=== PATIENT | female | born 1940 | race African-American/Black ===

== ENCOUNTER 2018-11-24 17:37 | Emergency (ER) | payer OTHER, MEDICARE ==
[2018-11-24 17:47] VITALS: BP 142/84; PULSE 82; TEMP 97.8; BMI 26.1
--- NOTE | 2018-11-24 18:47 | PDOC ---
History of Present Illness - General Chief Complaint: Headache Stated Complaint: HEAD ACH 4 DAYS NOW Time Seen by Provider: 11/24/18 18:42 History Source: Patient Exam Limitations: No Limitations - History of Present Illness Initial Comments: 11/24/18 19:02 78 yo F with a hx of glaucoma presents to the emergency department with right side frontal and maxillary pain that has been ongoing for 4 days. Per the patient, she had a hx of migraines, but this is a different quality to her usual migraines that terminate with excedrin use. Excedrin did not terminate this headache. Onset of pain began 2-3 hours after hitting her head against a cabinet while rising from a sitting position. Denies anti-coagulation use and LOC at the time. The pain is described as throbbing, non radiating, with concurrent nausea but no vomiting. Denies the following: FND, visual deficits, ears/nose/throat pain, fever, chills, ataxia, dizziness, lightheadedness, neck stiffness. Denies the following: chest pain, SOB, abdominal pain, dysuria, hematuria, diarrhea, hematochezia, and leg pain/swelling. Pmhx: glaucoma Meds: None Allergies: PCN, erythromycin Social: Denies tobacco, alcohol, and substance abuse. Past History - Past Medical History Allergies/Adverse Reactions: Allergies Allergy/AdvReac Type Severity Reaction Status Date / Time erythromycin base Allergy Verified 11/24/18 17:47 Penicillins Allergy Verified 11/24/18 17:47 Home Medications: Ambulatory Orders Unobtainable 06/07/15 COPD: No - Surgical History Cardiac Surgery: Yes (cardiac cath) - Suicide/Smoking/Psychosocial Hx Smoking History: Never smoked Hx Alcohol Use: No Drug/Substance Use Hx: No Substance Use Type: None Review of Systems - Review of Systems Able to Perform ROS?: Yes Is the patient limited Romansh proficient: No Constitutional: No: Chills, Diaphoresis, Fever, Weakness HEENTM: No: Eye Pain, Recent change in vision, Ear Pain, Nose Pain, Nose Congestion, Tinnitus, Throat Pain, Mouth Pain Respiratory: No: Cough, Shortness of Breath, SOB with Exertion, Hemoptysis Cardiac (ROS): No: Chest Pain, Lightheadedness, Palpitations, Syncope, Chest Tightness ABD/GI: Yes: Nausea. No: Constipated, Diarrhea, Poor Appetite, Poor Fluid Intake, Rectal Bleeding, Vomiting, Tarry Stools : No: Burning, Dysuria, Hematuria, Urgency Musculoskeletal: No: Back Pain, Joint Pain, Neck Pain Integumentary: No: Bruising, Erythema, Flushing, Lesions, Pruritus, Rash Neurological: Yes: Headache. No: Numbness, Tingling, Tremors, Ataxia, Dizziness Psychiatric: No: Change in Appetite Endocrine: No: Unexplained Weight Gain Hematologic/Lymphatic: Yes: Anemia (hx of anemia). No: Blood Clots *Physical Exam - Vital Signs Last Vital Signs Temp Pulse Resp BP Pulse Ox 97.8 F 82 18 142/84 99 11/24/18 17:45 11/24/18 17:45 11/24/18 17:45 11/24/18 17:45 11/24/18 17:45 - Physical Exam General Appearance: Yes: Nourished, Appropriately Dressed. No: Apparent Distress, Intoxicated HEENT: positive: EOMI, EUSEBIO, Normal ENT Inspection, Normal Voice, Symmetrical, TMs Normal, Pharynx Normal, Hearing Grossly Normal, Other (no rocha seen on skin. no bruises. slight tenderness to palpation in the right maxillary area. ) . negative: Pale Conjunctivae, Scleral Icterus (R), Scleral Icterus (L), Muffled/Hoarse voice, Pharyngeal Erythema, Tonsillar Exudate, Tonsillar Erythema , Nasal Congestion, Rhinorrhea, Sinus Tenderness, Hearing Decreased, TM Bulging , TM Dull, TM Erythema, Lesions, Excessive drooling, Thrush Neck: positive: Trachea midline. negative: Tender, Lymphadenopathy (R), Lymphadenopathy (L), Tender lateral, Tender midline Respiratory/Chest: positive: Lungs Clear, Normal Breath Sounds. negative: Chest Tender, Respiratory Distress, Accessory Muscle Use, Paradoxal Breathing, Crackles, Rales, Rhonchi, Stridor, Wheezing, Hyperresonant Cardiovascular: positive: Regular Rhythm, Regular Rate, S1, S2. negative: Systolic Murmur Gastrointestinal/Abdominal: positive: Normal Bowel Sounds, Flat, Soft. negative : Tender, Distended, Guarding, Rebound, Tenderness, Hernia Lymphatic: negative: Adenopathy Musculoskeletal: positive: Normal Inspection. negative: CVA Tenderness, CVA Tenderness (R), CVA Tenderness (L), Vertebral Tenderness Extremity: positive: Normal Capillary Refill, Normal Inspection, Normal Range of Motion. negative: Tender, Swelling, Calf Tenderness Integumentary: positive: Normal Color, Dry, Warm. 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 negative: EOM Palsy, Facial Droop, Sensory Deficit Moderate Sedation - Procedure Monitoring Vital Signs: Procedure Monitoring Vital Signs Temperature 97.8 F 11/24/18 17:45 Pulse Rate 82 11/24/18 17:45 Respiratory Rate 18 11/24/18 17:45 Blood Pressure 142/84 11/24/18 17:45 O2 Sat by Pulse Oximetry (%) 99 11/24/18 17:45 Heart Score/ECG Review - ECG Intrepretation Comment:: ventricular rate is 68 bpm, AR is 136 ms, QTc is 393 ms, QRS is [address] elevations or depression noted. grossly unchanged from previous EKG. ED Treatment Course - LABORATORY CBC & Chemistry Diagram: 11/24/18 20:08 11/24/18 20:08 Medical Decision Making - Medical Decision Making 78 yo F with a hx of glaucoma presents to the emergency department with right side frontal and maxillary pain that has been ongoing for 4 days. Initial vitals Initial Vital Signs Temp Pulse Resp BP Pulse Ox 97.8 F 82 18 142/84 99 11/24/18 17:45 11/24/18 17:45 11/24/18 17:45 11/24/18 17:45 11/24/18 17:45 Work up ddx: headache (migraine vs tension vs cluster vs intracranial mass) vs sinusitis vs URI Laboratory Tests 11/24/18 11/24/18 11/24/18 20:08 20:08 20:08 WBC 6.7 RBC 4.20 Hgb 14.5 Hct 42.2 MCV 100.5 H MCH 34.6 H MCHC 34.4 RDW 13.7 Plt Count 266 D MPV 7.2 L Absolute Neuts (auto) 5.0 Neutrophils % 74.9 D Lymphocytes % 14.4 D Monocytes % 8.6 Eosinophils % 1.3 Basophils % 0.8 Nucleated RBC % 0 Sodium 142 Potassium 3.9 Chloride 107 Carbon Dioxide 26 Anion Gap 9 BUN 15 Creatinine 0.9 Creat Clearance w eGFR > 60 Random Glucose 78 Calcium 9.4 Total Bilirubin 0.3 AST 20 ALT 17 Alkaline Phosphatase 96 Creatine Kinase 70 Troponin I < 0.02 Total Protein 7.8 Albumin 3.2 L Blood Type A POSITIVE Antibody Screen Negative 11/24/18 20:08 WBC RBC Hgb Hct MCV MCH MCHC RDW Plt Count MPV Absolute Neuts (auto) Neutrophils % Lymphocytes % Monocytes % Eosinophils % Basophils % Nucleated RBC % Sodium Potassium Chloride Carbon Dioxide Anion Gap BUN Creatinine Creat Clearance w eGFR Random Glucose Calcium Total Bilirubin AST ALT Alkaline Phosphatase Creatine Kinase Troponin I Total Protein Albumin Blood Type A POSITIVE Antibody Screen labs within normal limits. patient presents with headache likely migraine. head CT was negative. denies worst headache of her life. vitals signs within normal limits. given 1 gram of tylenol, 10 mg of reglan, 25 mg of benadryl, and 1 L of NS. patient had complete resolution of symptoms. given referral to neurologist as the patient never had previous neurology follow up for her migraines in the past. given return precautions. patient was able to ambulate out of the department on her own volition. Dispo: Discharge *DC/Admit/Observation/Transfer Diagnosis at time of Disposition: Headache Qualifiers: Headache type: unspecified Headache chronicity pattern: unspecified pattern Intractability: not intractable Qualified Code(s): R51 - Headache - Discharge Dispostion Disposition: HOME Condition at time of disposition: Improved Decision to Admit order: No - Referrals Referrals: Chelsea Dunne MD [Primary Care Provider] - Shashi Mckay MD [Staff Physician] - - Patient Instructions Printed Discharge Instructions: DI for Migraine Additional Instructions: you were seen for your headache today. labs and CT were within normal limits. please follow up with Dr. Mckay within 1 week for follow up care and management. please see your primary medical doctor within 1 week for follow up care and management. please return to the emergency department if you have worsening or new symptoms such as fever with headache, chest pain, nausea and vomiting that is uncontrolled, and focal neurological deficits. thank you. - Post Discharge Activity
[2018-11-24] MEDS ORDERED: ACETAMINOPHEN 1000 MG/100 ML VIAL (NON FORMULARY) IVPB ONE (19:31)
[2018-11-24] MEDS ORDERED: ACETAMINOPHEN INJECTION 100 ML IVPB ONE (19:50)
[2018-11-24 20:31] LABS: BASO % 0.8 % (0-2.0); EOS % 1.3 % (0-4.5); HEMATOCRIT 42.2 % (32.4-45.2); HEMOGLOBIN 14.5 GM/dL (10.7-15.3); LYMPH % 14.4 % (8-40); MCH 34.6 pg (25.7-33.7); MCHC 34.4 g/dl (32.0-36.0); MEAN CELL VOLUME 100.5 fl (80-96); MEAN PLT VOLUME 7.2 fl (7.5-11.1); MONO % 8.6 % (3.8-10.2); NEUT % 74.9 % (42.8-82.8); PLATELET COUNT 266 K/MM3 (134-434); RDW 13.7 % (11.6-15.6); WHITE BLOOD COUNT 6.7 K/mm3 (4.0-10.0)
[2018-11-24 20:43] LABS: ALBUMIN 3.2 g/dl (3.4-5.0); ALK PHOS 96 U/L (45-117); ANION GAP 9 MMOL/L (8-16); BILIRUBIN,TOTAL 0.3 mg/dL (0.2-1); BLOOD UREA NITROGEN 15 mg/dL (7-18); CALCIUM 9.4 mg/dL (8.5-10.1); CHLORIDE 107 mmol/L (98-107); CO2 26 mmol/L (21-32); CREATININE 0.9 mg/dL (0.55-1.3); GLUCOSE,RANDOM 78 mg/dL (74-106); POTASSIUM 3.9 mmol/L (3.5-5.1); SGOT/AST 20 U/L (15-37); SGPT/ALT 17 U/L (13-61); SODIUM 142 mmol/L (136-145); TOT PROT 7.8 g/dl (6.4-8.2)
[2018-11-24] MEDS ORDERED: SODIUM CHLORIDE 1,000 ML IV STA (21:10)
[2018-11-24] MEDS ORDERED: KETOROLAC TROMETHAMINE 30 MG/1 ML VIAL IVPUSH ONE (21:10)
[2018-11-24] MEDS ORDERED: METOCLOPRAMIDE HCL INJECTION 10 MG/2 ML VIAL IVPUSH ONE (21:10)
--- NOTE | 2018-11-24 21:31 | PDOC ---
Attending Attestation - HPI HPI: 11/24/18 21:49 The patient is a 78 year old female with a history of glaucoma who presents to the ED today complaining of frontal and maxillary pain. Patient reports 5/10 right side frontal and maxillary pain after getting hit in the head with a cabinet 4 days ago. Patient also reports a throbbing like headache and nausea associated with present symptoms. Patient took excedrin with no relief of present symptoms. Denies fevers or chills. Denies vomiting. Denies any other symptoms. <Delbert Ivey - Last Filed: 11/24/18 21:49> - Resident Resident Name: Fidencio Garcia - ED Attending Attestation I have performed the following: I have examined & evaluated the patient, The case was reviewed & discussed with the resident, I agree w/resident's findings & plan, Exceptions are as noted - HPI HPI: 11/24/18 21:30 78 yo female p/w persistent 4 day headache. She did fall 4 days ago. - Physicial Exam PE: 11/24/18 22:39 alert and conversant 78 yo female eyes marco antonio eomi neck supple,no bruits no midline cervical vertebral tenderness lungs cta b/l cvs [id number] abd nontender ext no edema no lumbar vertebral tenderness skin warm and dry neuro axox3,motor strength 5/5, ambulatory , no facial droop, no speech difficulties - Medical Decision Making 11/24/18 22:42 stable VS labs reviewed ekg no evidence of ischemia ct scan head no acute intracranial pathology, atrophy pt has no focal neuro deficits, her headache resolved <Edita Armstrong - Last Filed: 11/24/18 22:45> Attestations - Attestations 11/24/18 21:49 Documentation prepared by Delbert Ivey, acting as senior medical billing specialist for Edita Armstrong MD <Delbert Ivey - Last Filed: 11/24/18 21:49>
[2018-11-24] MEDS ORDERED: METOCLOPRAMIDE HCL INJECTION 10 MG/2 ML VIAL ONE (21:42)
[2018-11-24] MEDS ORDERED: KETOROLAC TROMETHAMINE 30 MG/1 ML VIAL ONE (21:42)
--- NOTE | 2018-11-25 12:08 | EKG ---
Test Reason : Blood Pressure : / mmHG Vent. Rate : 068 BPM Atrial Rate : 068 BPM P-R Int : 136 ms QRS Dur : 080 ms QT Int : 370 ms P-R-T Axes : 041 038 033 degrees QTc Int : 393 ms NORMAL SINUS RHYTHM NONSPECIFIC T WAVE ABNORMALITY ABNORMAL ECG WHEN COMPARED WITH ECG OF 07-JUN-2015 03:06, NO SIGNIFICANT CHANGE WAS FOUND Confirmed by DASHAWN CRUZ MD ([id number]) on 11/25/2018 12:08:18 PM Referred By: Confirmed By:DASHAWN CRUZ MD
== END 2018-11-24 23:09 | disposition home or self-care (01) ==
LOC: JER 17:37
DX: R51 Headache (principal); W22.8XXA Striking against or struck by other objects, initial encounter; Y93.89 Activity, other specified; Y92.89 Other specified places as the place of occurrence of the external cause; Y99.8 Other external cause status; Z98.61 Coronary angioplasty status; Z86.69 Personal history of other diseases of the nervous system and sense organs
CPT/HCPCS: 36415; 70450-TC; 80053; 82550; 84484; 85025; 86850; 86900; 86901; 93005; 93010; 99282-25; J0131; J7030

== ENCOUNTER 2019-03-02 02:57 | Emergency (ER) | payer OTHER, MEDICARE ==
--- NOTE | 2019-03-02 03:28 | PDOC ---
History of Present Illness - General Chief Complaint: Shortness of Breath Stated Complaint: SOB Time Seen by Provider: 03/02/19 03:07 History Source: Patient Exam Limitations: No Limitations Past History - Past Medical History Allergies/Adverse Reactions: Allergies Allergy/AdvReac Type Severity Reaction Status Date / Time erythromycin base Allergy Verified 03/02/19 03:23 Penicillins Allergy Verified 03/02/19 03:23 Home Medications: Ambulatory Orders Unobtainable 06/07/15 COPD: No - Surgical History Cardiac Surgery: Yes (cardiac cath) - Suicide/Smoking/Psychosocial Hx Smoking History: Never smoked Have you smoked in the past 12 months: No Information on smoking cessation initiated: No Hx Alcohol Use: No Drug/Substance Use Hx: No Substance Use Type: None *Physical Exam - Vital Signs Last Vital Signs Temp Pulse Resp BP Pulse Ox 97.6 F 66 18 131/77 98 03/02/19 02:57 03/02/19 02:57 03/02/19 02:57 03/02/19 02:57 03/02/19 02:57 *DC/Admit/Observation/Transfer Diagnosis at time of Disposition: Arm pain Qualifiers: Laterality: bilateral Qualified Code(s): M79.601 - Pain in right arm; M79.602 - Pain in left arm - Discharge Dispostion Disposition: HOME Condition at time of disposition: Fair Decision to Admit order: No - Referrals Referrals: Chelsea Dunne MD [Primary Care Provider] - Hu Regalado DO [Staff Physician] - - Patient Instructions Printed Discharge Instructions: DI for Arm Pain Additional Instructions: you were evaluated for your arm tingling sensation. your ct was negative for acute process but shows degenerative change. please follow up with the neurologist within 1 week after discharge for follow up care and management. please return to the emergency department if you have worsening pain or new concerning symptoms such as focal weakness, loss of balance, and inability to use your arms. thank you. - Post Discharge Activity
[2019-03-02 03:31] VITALS: BP 131/77; PULSE 66; TEMP 97.6; BMI 26.1
[2019-03-02] MEDS ORDERED: METHOCARBAMOL 500 MG TABLET PO ONE (05:20)
[2019-03-02] MEDS ORDERED: METHOCARBAMOL 500 MG TABLET ONE (05:51)
--- NOTE | 2019-03-02 06:57 | PDOC ---
Attending Attestation - Resident Resident Name: Fidencio Garcia - ED Attending Attestation I have performed the following: I have examined & evaluated the patient, The case was reviewed & discussed with the resident, I agree w/resident's findings & plan - HPI HPI: 03/03/19 00:24 Pt comes with bilateral arm pains. - Physicial Exam PE: 03/03/19 00:25 No CP. Heart and lungs clear. Pt has no abd pain. 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 03/03/19 00:25 Agree with resident exam - Medical Decision Making 03/02/19 06:56 Patient Name: TAY HATHAWAY THIS IS A PRELIMINARY REPORT FROM [facility] DATE OF SERVICE: 2019-03-02 05:57:30 IMAGES: 238 EXAM: CT CERVICAL SPINE CT W/O CONTR HISTORY: Concern for nerve impingement COMPARISON: None. FINDINGS: Vertebral bodies appear normal with no fracture Vertebral bodies are normally aligned there are degenerative changes with intervertebral disc space narrowing at the level of C3-C4, C4-C5 and C5-C6. There are posterior osteophytes most prominently at C4-C5 but without central spinal canal stenosis. There is some narrowing of the right neural foramen at this level Airway is intact Soft Tissues are normal Pulmonary apices are normal IMPRESSION: Degenerative changes without cervical spine fracture 03/03/19 00:26 Pt will follow outpatient with neurology for analgesics and further eval
--- NOTE | 2019-03-02 15:24 | EKG ---
Test Reason : Blood Pressure : / mmHG Vent. Rate : 066 BPM Atrial Rate : 066 BPM P-R Int : 144 ms QRS Dur : 086 ms QT Int : 436 ms P-R-T Axes : 044 054 040 degrees QTc Int : 457 ms SINUS RHYTHM WITH PREMATURE ATRIAL COMPLEXES NONSPECIFIC T WAVE ABNORMALITY ABNORMAL ECG WHEN COMPARED WITH ECG OF 24-NOV-2018 19:53, PREMATURE ATRIAL COMPLEXES ARE NOW PRESENT QT HAS LENGTHENED Confirmed by NILSON PATTON, PADMINI ([id number]) on 03/02/2019 3:23:36 PM Referred By: Confirmed By:PADMINI DEVINE MD
== END 2019-03-02 07:07 | disposition home or self-care (01) ==
LOC: JER 02:57
DX: M50.31 Other cervical disc degeneration, high cervical region (principal); M50.323 Other cervical disc degeneration at C6-C7 level
CPT/HCPCS: 72125-TC; 93005; 93010; 99282-25

== ENCOUNTER 2019-11-20 14:35 | Inpatient (IN) | payer OTHER, MEDICARE ==
--- NOTE | 2019-11-20 16:04 | PDOC ---
History of Present Illness - General Chief Complaint: Pain, Acute Stated Complaint: SENT BY PCP/RT LEG PAIN Time Seen by Provider: 11/20/19 15:13 - History of Present Illness Initial Comments: 11/20/19 16:08 Pt is a 79y/o female with glaucoma and right knee OA who presents with gradual onset right lower extremity weakness x2 weeks. In the last 2 days, it has gotten significantly worse to the point she is having to drag her foot at times in order to walk. She also was having difficulty using the pedal while driving and is having intermittent numbness and tingling of toes. Dr. Hsu suggested pt come to ED for evaluation. She reports posterior thigh "electric sensations" that is worse with sitting and standing from toilet. She denies headache, dizziness, weakness of other extremities, bowel or bladder incontinence. No recent illnesses. Timing/Duration: reports: 24 hours Past History - Past Medical History Allergies/Adverse Reactions: Allergies Allergy/AdvReac Type Severity Reaction Status Date / Time erythromycin base Allergy Verified 03/02/19 03:23 Penicillins Allergy Verified 03/02/19 03:23 Home Medications: Ambulatory Orders Naproxen Sodium [Aleve] 220 mg PO BID 11/20/19 Netarsudil Mesylate [Rhopressa] 1 drop OU HS 11/20/19 COPD: No Hx Glaucoma: Yes - Surgical History Cardiac Surgery: Yes (cardiac cath) - Immunization History Immunization Up to Date: No - Psycho Social/Smoking Cessation Hx Smoking History: Never smoked Have you smoked in the past 12 months: No Information on smoking cessation initiated: No Hx Alcohol Use: No Drug/Substance Use Hx: No Substance Use Type: None Review of Systems - Review of Systems Constitutional: No: Chills, Fever Respiratory: No: Shortness of Breath Cardiac (ROS): No: Chest Pain ABD/GI: No: Nausea, Vomiting : No: Dysuria Musculoskeletal: Yes: Joint Pain. No: Back Pain Integumentary: No: Bruising Neurological: Yes: Numbness, Paresthesia. No: Headache *Physical Exam - Vital Signs Last Vital Signs Temp Pulse Resp BP Pulse Ox 97.6 F 69 16 122/77 99 11/20/19 14:44 11/20/19 14:44 11/20/19 14:44 11/20/19 14:44 11/20/19 14:44 - Physical Exam General Appearance: Yes: Nourished, Appropriately Dressed. No: Apparent Distress HEENT: positive: EOMI, EUSEBIO, Normal Voice, Symmetrical, Hearing Grossly Normal Neck: positive: Trachea midline Respiratory/Chest: positive: Lungs Clear Cardiovascular: positive: Regular Rhythm, Regular Rate. negative: Murmur Gastrointestinal/Abdominal: positive: Normal Bowel Sounds. 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, Fully Oriented, Alert, Normal Mood/ Affect, Other (Strength of extremities 5/5, except right knee extension 4/5; sensation reduced right lower extremity in multiple dermatomes) NIH Stroke Scale - Initial Evaluation Level of consciousness: Alert Ask patient the month and their age: Answers both correctly Ask patient to open & close eyes; make fist and let go: Obeys both correctly Best gaze (horizontal eye movement): Normal Visual field testing: No visual field loss Facial paresis (Show teeth/raise eyebrows/close eyes tight): Normal symmetrical movement Motor Function: Left Arm: Normal Motor Function: Right Arm: Normal (extends arm 90 (or 45) degrees for 10 seconds without drift Motor Function: Left Leg: Normal (extends leg 30 degrees for 5 seconds without drift) Motor Function: Right Leg: Some effort against gravity Limb Ataxia: No ataxia Sensory(Use pinprick test arms,legs,trunk,face/side to side): Normal Best language (Describe picture, name items, read sentences): No Aphasia Dysarthria (read several words): Normal articulation Extinction and Inattention: No abnormality - Total Score NIH Stroke Scale Score: 2 Critical Care Time/MDM Note - Medical Decision Making Note: 11/20/19 17:27 Dr. Brandon informed and recommends CT brain to r/o ORIN stroke as well as CT L- spine. MRI L-spine will also be ordered for concern of nerve impingement and possible cauda equina. 11/20/19 19:00 CT head negative for acute processes. CT L-spine read pending. Discharge - Discharge Information Problems reviewed: Yes Clinical Impression/Diagnosis: Leg weakness Qualifiers: Laterality: right Qualified Code(s): R29.898 - Other symptoms and signs involving the musculoskeletal system Condition: Stable - Follow up/Referral Referrals: Chelsea Dunne MD [Primary Care Provider] - - Patient Discharge Instructions - Post Discharge Activity
--- NOTE | 2019-11-20 16:29 | PDOC ---
Attending Attestation - Resident Resident Name: Kacey Jean Baptiste - ED Attending Attestation I have performed the following: I have examined & evaluated the patient, The case was reviewed & discussed with the resident, I agree w/resident's findings & plan, Exceptions are as noted - HPI HPI: 79 yo F history glaucoma, arthritis presents with pain to the RLE associated with weakness. She noticed it for the past 2 weeks, but over the last 2 days, she has lost her ability to use her foot- unable to push the gas when driving ( so her sister has been driving her around), difficulty walking. C/o sharp pain going down the R leg, worse with any movement of the leg. Denies trauma. - Physicial Exam PE: GENERAL: Awake, alert, and fully oriented, in no acute distress HEAD: No signs of trauma EYES: PERRLA, EOMI, sclera anicteric, conjunctiva clear ENT: Auricles normal inspection, hearing grossly normal, nares patent, oropharynx clear without exudates. Moist mucosa NECK: Normal ROM, supple, no lymphadenopathy, JVD, or masses LUNGS: Breath sounds equal, clear to auscultation bilaterally. No wheezes, and no crackles HEART: Regular rate and rhythm, normal S1 and S2, no murmurs, rubs or gallops ABDOMEN: Soft, nontender, normoactive bowel sounds. No guarding, no rebound. No masses EXTREMITIES: Normal range of motion, no edema. No clubbing or cyanosis. No cords, erythema, or tenderness NEUROLOGICAL: Cranial nerves II through XII grossly intact. Sensation intact throughout. Motor 5/5 with the following exception- dorsiflexion and plantar flexion of the R foot. R SLR positive at 10 degrees SKIN: Warm, dry, normal turgor, no rashes or lesions noted. - Medical Decision Making Pt with abrupt onset weakness and pain of the RLE, +foot drop. Will order stat MRI, c/s neuro/neurosurg depending on findings.
--- NOTE | 2019-11-20 17:30 | PDOC ---
*Physical Exam - Vital Signs Last Vital Signs Temp Pulse Resp BP Pulse Ox 97.6 F 69 16 122/77 99 11/20/19 14:44 11/20/19 14:44 11/20/19 14:44 11/20/19 14:44 11/20/19 14:44 ED Treatment Course - LABORATORY CBC & Chemistry Diagram: 11/20/19 18:00 11/20/19 18:00 Medical Decision Making - Medical Decision Making 11/20/19 17:30 pt signed out pending MRI, labs, discussion w neurosx/neuro for new RLE leg weakness/foot drop 11/20/19 20:[address] neg no elevated wbc 11/20/19 22:23 pt with pain in R leg and proximal weakness on exam, mild plantar flexion RLE, pulses intact, mild change in sensation lateral foot MRI shows spinal stenosis L1-s1 pt updated on MRI findings will call Dr. Isai palomares to discuss findings 11/20/19 22:41 resident discussed the case with Dr. pearl who will see the paient in consult tomorrow, requests decadron pmd dr. piña- admits to [facility] [employer] sent 11/20/19 23:05 pt with diffuse itching after decadron, will give benadryl, pepcid 11/20/19 23:22 resident discussed the case with [facility] who accepts pt to service Discharge - Discharge Information Problems reviewed: Yes Clinical Impression/Diagnosis: Spinal stenosis Leg weakness Qualifiers: Laterality: right Qualified Code(s): R29.898 - Other symptoms and signs involving the musculoskeletal system Condition: Fair - Admission Yes - Follow up/Referral Referrals: Chelsea Piña MD [Primary Care Provider] - - Patient Discharge Instructions - Post Discharge Activity
[2019-11-20 19:00] LABS: INR 1.03 (0.83-1.09); PROTHROMBIN TIME (PATIENT) 12.1 SEC (9.7-13.0)
[2019-11-20 19:02] LABS: ACTIVATED PTT 28.2 SECONDS (25.2-36.5)
[2019-11-20 19:05] LABS: BASO % 0.8 % (0-2.0); EOS % 4.4 % (0-4.5); HEMATOCRIT 39.3 % (32.4-45.2); HEMOGLOBIN 13.4 GM/dL (10.7-15.3); LYMPH % 23.2 % (8-40); MCH 34.3 pg (25.7-33.7); MCHC 34.2 g/dl (32.0-36.0); MEAN CELL VOLUME 100.2 fl (80-96); MEAN PLT VOLUME 8.1 fl (7.5-11.1); MONO % 9.1 % (3.8-10.2); NEUT % 62.5 % (42.8-82.8); PLATELET COUNT 247 K/MM3 (134-434); RBC 3.92 M/mm3 (3.60-5.2)
[2019-11-20] MEDS ORDERED: DEXAMETHASONE SOD PHOSPHATE 10 MG/1 ML VIAL IVPUSH ONE (22:39)
[2019-11-20] MEDS ORDERED: DEXAMETHASONE SOD PHOSPHATE 10 MG/1 ML VIAL ONE (22:44)
[2019-11-20] MEDS ORDERED: FAMOTIDINE 20 MG/50 ML IVPB 20 MG/50 ML MG IVPB ONE ×2 (22:49→22:50)
[2019-11-20] MEDS ORDERED: SODIUM CHLORIDE 500 ML IV STA (22:50)
--- NOTE | 2019-11-20 23:27 | PDOC ---
*Physical Exam - Vital Signs Last Vital Signs Temp Pulse Resp BP Pulse Ox 97.6 F 60 18 132/77 97 11/20/19 14:44 11/20/19 20:15 11/20/19 20:15 11/20/19 20:15 11/20/19 20:15 ED Treatment Course - LABORATORY CBC & Chemistry Diagram: 11/20/19 18:00 11/20/19 18:00 - ADDITIONAL ORDERS Additional order review: Laboratory Results 11/20/19 11/20/19 11/20/19 18:00 18:00 18:00 PT with INR 12.10 INR 1.03 PTT (Actin FS) 28.2 Sodium Cancelled Potassium Cancelled Chloride Cancelled Carbon Dioxide Cancelled Anion Gap Cancelled BUN Cancelled Creatinine Cancelled Est GFR (CKD-EPI)AfAm Cancelled Est GFR (CKD-EPI)NonAf Cancelled Random Glucose Cancelled Calcium Cancelled Total Bilirubin Cancelled AST Cancelled ALT Cancelled Alkaline Phosphatase Cancelled Total Protein Cancelled Albumin Cancelled Blood Type A POSITIVE Antibody Screen Negative 11/20/19 18:00 RBC 3.92 MCV 100.2 H MCHC 34.2 RDW 15.0 MPV 8.1 D Neutrophils % 62.5 Lymphocytes % 23.2 D Monocytes % 9.1 Eosinophils % 4.4 D Basophils % 0.8 - Medications Given in the ED: ED Medications Discontinued Medications Generic Name Dose Route Start Last Admin Trade Name Freq PRN Reason Stop Dose Admin Dexamethasone Sodium Phosphate 10 mg 11/20/19 22:39 11/20/19 22:58 Decadron Injection - IVPUSH 11/20/19 22:40 10 mg ONCE ONE Administration Diphenhydramine HCl 50 mg 11/20/19 22:49 11/20/19 23:18 Benadryl Injection - IVPUSH 11/20/19 22:50 50 mg ONCE ONE Administration Famotidine/Sodium Chloride 20 mg in 50 mls @ 100 mls/hr 11/20/19 22:49 23:18 Pepcid 20 Mg Premixed Ivpb - IVPB 11/20/19 23:18 Not Given ONCE ONE Sodium Chloride 500 mls @ 1,000 mls/hr 11/20/19 22:50 11/20/19 23:19 Normal Saline - IV 11/20/19 23:19 Not Given ASDIR STA Medical Decision Making - Medical Decision Making 11/20/19 23:26 Signed out from AM team 79 y/o F with hx of glaucoma, OA, cardiac cath Dr. Brandon informed and recommends CT brain to r/o ORIN stroke as well as CT L- spine. MRI L-spine will also be ordered for concern of nerve impingement and possible cauda equina. 11/20/19 19:00 CT head negative for acute processes. CT L-spine read pending. 11/21/19 00:09 CT L spine and MRI L spine with severe disc disease and joint disease Dr Alex with neurosurgery consulted and recommended IV decadron and admission for further workup 11/21/19 00:15 immediately following decadron, patient with complaints of burning and pruritis , no rash; report filed for allergy; benadryl given but denied ivf and pepcid admitted to [facility]/surg for RLE weakness and spinal stenosis Discharge - Discharge Information Problems reviewed: Yes Clinical Impression/Diagnosis: Leg weakness Qualifiers: Laterality: right Qualified Code(s): R29.898 - Other symptoms and signs involving the musculoskeletal system Spinal stenosis Qualifiers: Spinal region: lumbar Neurogenic claudication status: with neurogenic claudication Qualified Code(s): M48.062 - Spinal stenosis, lumbar region with neurogenic claudication Condition: Stable - Follow up/Referral - Patient Discharge Instructions - Post Discharge Activity
--- NOTE | 2019-11-21 00:48 | PN ---
Teaching Attending Note Name of Resident: Yfn Morrell ATTENDING PHYSICIAN STATEMENT I saw and evaluated the patient. I reviewed the resident's note and discussed the case with the resident. I agree with the resident's findings and plan as documented. SUBJECTIVE: Patient is a 79 year old woman with a PMH of Glaucoma and Right knee osteoarthritis who presents with gradual onset right lower extremity weakness for 2 weeks. In the last 2 days, it has gotten significantly worse to the point that she is having to drag her foot at times in order to walk. She also was having difficulty using the pedal while driving and is having intermittent numbness and tingling of toes. Dr. Hsu suggested patient go to the ER for evaluation. She reports posterior thigh "electric sensations" that is worse with sitting and standing from toilet. She denies headache, dizziness, weakness of other extremities, bowel or bladder incontinence. No recent illnesses or travel. Denies alcohol, tobacco or illicit drug use. OBJECTIVE: Alert Vital Signs Period Temp Pulse Resp BP Sys/Torres Pulse Ox Last 24 Hr 97.6 F 60-69 16-18 122-132/77-77 97-99 HEENT: No Jaundice, eye redness or discharge, PERRLA, EOMI. Normocephalic, atraumatic. External ears are normal and hearing is grossly intact. No nasal discharge. Neck: Supple, nontender. No palpable adenopathy or thyromegaly. No JVD Chest: Good effort. Clear to auscultation and percussion. Heart: Regular. No S3, rub or murmur Abdomen: Not distended, soft, nontender and no HSM. No rebound or guarding. Normal bowel sounds. Ext: Peripheral pulses intact. No leg edema. Normal rectal tone and no saddle anaesthesia. Skin: Warm and dry. No petechiae, rash or ecchymosis. Neuro: Alert. Oriented x3. CN 2-12 grossly intact. Sensation grossly intact in all four extremities; RLE weakness. Gait not tested for safety reasons. Psych: Appropriate mood and affect. Good insight. Home Medications Medication Instructions Recorded Naproxen Sodium [Aleve] 220 mg PO BID 11/20/19 Netarsudil Mesylate [Rhopressa] 1 drop OU HS 11/20/19 Abnormal Lab Results 11/20/19 18:00 MCV 100.2 H MCH 34.3 H ASSESSMENT AND PLAN: 1. Spinal stenosis and RLE weakness - No acute abnormality on head CT scan. Lumbar MRI shows spinal stenosis L1-S1. Her NIHSS score in the ER was 2. ER staff discussed case with Neurosurgeon Dr. Alex who will see the patient in consult tomorrow and recommended Decadron. However she developed pain at the site of injection after decadron and also had associated itching. Was treated with benadryl and pepcid. Getting free water for mild hypernatremia. EKG shows NSR, PACs and possible anterior infarct of undetermined age. UA is pending. Consult PT, implement neurochecks and fall precautions. Will continue comprehensive care for all of patients comorbid conditions. 2. DVT prophylaxis - SCD 3. Advance directives - Full code
[2019-11-21] MEDS ORDERED: LIDOCAINE 5% TOPICAL PATCH TP PRN (01:28)
[2019-11-21 02:37] LABS: ALBUMIN 3.5 g/dl (3.4-5.0); BILIRUBIN,TOTAL 0.6 mg/dL (0.2-1); BLOOD UREA NITROGEN 14.2 mg/dL (7-18); CALCIUM 9.4 mg/dL (8.5-10.1); CREATININE 0.7 mg/dL (0.55-1.3); POTASSIUM 4.2 mmol/L (3.5-5.1); TOT PROT 7.4 g/dl (6.4-8.2)
--- NOTE | 2019-11-21 04:22 | HP ---
CHIEF COMPLAINT: R lower extremity weakness PCP: Dr. Dunne HISTORY OF PRESENT ILLNESS: Vania Granger is a 79 year old female with a past medical history of glaucoma and R knee osteoarthritis is presenting with a 2 weeks history of difficulty ambulating, RLE weakness, numbness, and pain. The patient is usually ambulatory and does not require assistive devices most of the time but occasionally shares her twin sister's cane for ambulation. She drives many places due to having severe pain in her R knee from osteoarthritis where she notes there is "bone on bone". She is followed by Dr. Dejesus for her orthopedic requirements. She endorses that over the last 2 weeks she has had increasing weakness and numbness of her R lower extremity where she states she has had a foot drop and had difficulty operating the pedals in her car. She endorses dragging her R leg and needing to pick it up with her hands in order to move it. She states that it is difficult for her to get up her stairs so she must crawl up them. Over the last 2 days, she notes that the weakness, numbness, and pain have gotten to the point where she wanted to be evaluated for them at the emergency room. She denies recent trauma to the legs or spine, recent falls, new medications, sick contacts, recent illnesses, recent travel. Endorsed chronic weakness of her R upper extremity with mild numbness. She denies L lower extremity weakness, numbness, tingling, bowel or bladder incontinence, frequency, hesitancy, dysuria , hematuria. Denied cp, sob, abd pain, n/v/c/d, fever, chills, dizziness, lightheadedness, headaches. ER course was notable for: (1) Na 149, Cl 117 (2) CT head with no acute pathology (3) MRI spine as below MRI LUMBAR SPINE IMPRESSION: Diffuse degenerative disease throughout the thoracic and lumbar spine was sigmoid scoliosis. No compression fractures At L1-L2 there is mild spinal stenosis with bilateral neural outlet encroachment. At L2-L3 there is moderate to severe spinal stenosis. Bilateral neural outlet stenosis. At L3-L4 there is severe spinal stenosis. Bilateral neural outlet stenosis. At L4-L5 there is moderate spinal stenosis. Bilateral neural outlet stenosis which is severe on the left. At L5-S1 there is no spinal stenosis. Left-sided neural outlet encroachment. Right-sided neural outlet stenosis. Posterior displacement of the descending right S1 nerve root without compression against the posterior elements. 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 Allergies dexamethasone [From Decadron] Allergy (Verified 11/20/19 23:35) erythromycin base Allergy (Verified 03/02/19 03:23) Penicillins Allergy (Verified 03/02/19 03:23) HOME MEDICATIONS: Home Medications Medication Instructions Recorded Naproxen Sodium [Aleve] 220 mg PO BID 11/20/19 Netarsudil Mesylate [Rhopressa] 1 drop OU HS 11/20/19 Brimonidine Tartrate [Alphagan 1 drop OU BID 11/21/19 0.2% -] REVIEW OF SYSTEMS CONSTITUTIONAL: Absent: fever, chills, diaphoresis, generalized weakness, malaise, loss of appetite, HEENT: Absent: rhinorrhea, nasal congestion, throat pain, throat swelling, difficulty swallowing, visual changes CARDIOVASCULAR: Absent: chest pain, syncope, palpitations, irregular heart rate, lightheadedness , RESPIRATORY: Absent: cough, shortness of breath, dyspnea with exertion, orthopnea, wheezing, GASTROINTESTINAL: Absent: abdominal pain, abdominal distension, nausea, vomiting, diarrhea, constipation, GENITOURINARY: Absent: dysuria, frequency, urgency, hesitancy, hematuria, flank pain, genital pain MUSCULOSKELETAL: back pain, neck pain Absent: myalgia, arthralgia, joint swelling SKIN: Absent: rash, itching, pallor HEMATOLOGIC/IMMUNOLOGIC: Absent: easy bleeding, easy bruising, lymphadenopathy, frequent infections ENDOCRINE: Absent: unexplained weight gain, unexplained weight loss, heat intolerance, cold intolerance NEUROLOGIC: weakness of the RLE, numbness of the R lower extremity, unsteady gait Absent: headache, dizziness, seizure, mental status changes, bladder or bowel incontinence PSYCHIATRIC: Absent: anxiety, depression, suicidal or homicidal ideation, hallucinations. PHYSICAL EXAMINATION Vital Signs - 24 hr 11/20/19 11/20/19 14:44 20:15 Temperature 97.6 F Pulse Rate 69 Pulse Rate [ 60 Right Radial] Respiratory 16 18 Rate Blood Pressure 122/77 Blood Pressure 132/77 [Left Arm] O2 Sat by Pulse 99 97 Oximetry (%) GENERAL: Awake, alert, and fully oriented, in no acute distress. HEAD: Normal with no signs of trauma. EYES: Pupils equal, round and reactive to light, extraocular movements intact, sclera anicteric, conjunctiva clear. EARS, NOSE, THROAT: Oropharynx clear without exudates. Moist mucous membranes. NECK: Normal range of motion, supple without lymphadenopathy, JVD. LUNGS: Breath sounds equal, clear to auscultation bilaterally. No wheezes, and no crackles. No accessory muscle use. HEART: Regular rate and rhythm, with occasional extra beats, normal S1 and S2 without murmur, rub. ABDOMEN: Soft, nontender, not distended, normoactive bowel sounds, no guarding, no rebound, no masses. MUSCULOSKELETAL: Decreased range of motion of bilateral knees secondary to pain. Tender to palpation on R>L knee. UPPER EXTREMITIES: 2+ pulses, warm, well-perfused. No cyanosis. No clubbing. No peripheral edema. LOWER EXTREMITIES: 2+ pulses, warm, well-perfused. No calf tenderness. No peripheral edema. NEUROLOGICAL: Cranial nerves II-XII intact. 4/5 on R upper extremity with sensory deficit in C5 distribution. 5/5 on LUE. 3/5 muscle strength on the proximal RLE including hip flexion/extension and knee flexion/extension. 5/5 R plantar/dorsiflexion and all of LLE. Sensation diminished throughout on RLE to gross touch, pinprick, and vibratory sense. Sensation intact to gross touch and pinprick throughout except as noted above. 1+ Reflex on R patellar. 2+ on R Achilles and L patellar and Achilles. HTS and FTN intact. Gait not assesed. PSYCHIATRIC: Cooperative. Good eye contact. Appropriate mood and affect. SKIN: Warm, dry, normal turgor, no rashes or lesions noted, normal capillary refill. Laboratory Results - last 24 hr 11/20/19 11/20/19 11/20/19 18:00 18:00 18:00 WBC 6.0 RBC 3.92 Hgb 13.4 Hct 39.3 MCV 100.2 H MCH 34.3 H MCHC 34.2 RDW 15.0 Plt Count 247 MPV 8.1 D Absolute Neuts (auto) 3.7 Neutrophils % 62.5 Lymphocytes % 23.2 D Monocytes % 9.1 Eosinophils % 4.4 D Basophils % 0.8 Nucleated RBC % 0 PT with INR 12.10 INR 1.03 PTT (Actin FS) 28.2 Sodium Cancelled Potassium Cancelled Chloride Cancelled Carbon Dioxide Cancelled Anion Gap Cancelled BUN Cancelled Creatinine Cancelled Est GFR (CKD-EPI)AfAm Cancelled Est GFR (CKD-EPI)NonAf Cancelled Random Glucose Cancelled Calcium Cancelled Total Bilirubin Cancelled AST Cancelled ALT Cancelled Alkaline Phosphatase Cancelled Total Protein Cancelled Albumin Cancelled Blood Type Antibody Screen 11/20/19 11/21/19 18:00 01:02 WBC RBC Hgb Hct MCV MCH MCHC RDW Plt Count MPV Absolute Neuts (auto) Neutrophils % Lymphocytes % Monocytes % Eosinophils % Basophils % Nucleated RBC % PT with INR INR PTT (Actin FS) Sodium 149 H Potassium 4.2 Chloride 117 H Carbon Dioxide 26 Anion Gap 6 L BUN 14.2 Creatinine 0.7 Est GFR (CKD-EPI)AfAm 95.51 Est GFR (CKD-EPI)NonAf 82.41 Random Glucose 100 Calcium 9.4 Total Bilirubin 0.6 AST 21 ALT 21 Alkaline Phosphatase 92 Total Protein 7.4 Albumin 3.5 Blood Type A POSITIVE Antibody Screen Negative EKG--> sinus with PACs, ? age indeterminate anterior infarct, T wave inversions in V1, V3, V4, flattening in V5, V6, III, no ST segment changes, QTc 394 ASSESSMENT/PLAN: Vania Granger is a 79 year old female with a past medical history of glaucoma and R knee osteoarthritis admitted for lumbar spine stenosis. RLE weakness secondary to lumbar spine stenosis - MRI as above - neurology and neurosurgery consulted - was given one dose of Decadron as per neurosurgery recs through ED and did not tolerate well, claiming it was burning her, unclear if infiltrated or true allergy to decadron - will monitor off steroids with neurochecks - NSAIDS and lidocaine patch for pain - possible EMG while inpatient - physical therapy Hypernatremia - unclear reason as patient stating she has good oral intake and no IV fluids administered, not currently on meds that may cause DI - D5W at 42cc/hr - Free water deficit 1.8L - urine osms, urine lytes, serum osms - continue to monitor BMP to not overcorrect by greater than 8-10Meq/24 hours Glaucoma - continue home glaucoma meds DVT PPx - SCDs, if no procedure planned can start Lovenox 40mg subq daily FEN - D5W at 42cc/hr, when restarts diet can d/c fluids and encourage free water intake - continue to monitor electrolytes and replete as necessary - keep NPO for possible procedure, can reinstate diet if no procedure planned Dispo - admit to Med-surg Family Medical History Family History: Unremarkable Visit type - Emergency Visit Emergency Visit: Yes ED Registration Date: 11/20/19 Care time: The patient presented to the Emergency Department on the above date and was hospitalized for further evaluation of their emergent condition. - New Patient This patient is new to me today: Yes Date on this admission: 11/21/19 - Critical Care Critical Care patient: No
[2019-11-21] MEDS ORDERED: DEXTROSE 5%-WATER - 1,000 ML IV SCH ×2 (04:45→04:57)
[2019-11-21 07:08] LABS: BASO % 0.7 % (0-2.0); EOS % 0.2 % (0-4.5); HEMATOCRIT 38.3 % (32.4-45.2); HEMOGLOBIN 13.2 GM/dL (10.7-15.3); LYMPH % 16.5 % (8-40); MCH 34.3 pg (25.7-33.7); MCHC 34.4 g/dl (32.0-36.0); MEAN CELL VOLUME 99.5 fl (80-96); MEAN PLT VOLUME 7.3 fl (7.5-11.1); MONO % 1.8 % (3.8-10.2); NEUT % 80.8 % (42.8-82.8); PLATELET COUNT 236 K/MM3 (134-434); RBC 3.84 M/mm3 (3.60-5.2); RDW 14.5 % (11.6-15.6)
[2019-11-21 07:20] LABS: INR 1.09 (0.83-1.09); PROTHROMBIN TIME (PATIENT) 12.9 SEC (9.7-13.0)
[2019-11-21 07:34] LABS: ALBUMIN 3.5 g/dl (3.4-5.0); BILIRUBIN,TOTAL 0.6 mg/dL (0.2-1); BLOOD UREA NITROGEN 13.4 mg/dL (7-18); CALCIUM 9.8 mg/dL (8.5-10.1); CREATININE 0.7 mg/dL (0.55-1.3); MAGNESIUM 2.1 mg/dL (1.8-2.4); PHOSPHOROUS 3.3 mg/dL (2.5-4.9); POTASSIUM 4.2 mmol/L (3.5-5.1); TOT PROT 7.8 g/dl (6.4-8.2)
--- NOTE | 2019-11-21 08:03 | PN ---
Progress Note (short form) - Note Progress Note: NEUROSURGERY CONSULT DICTATED Professional colleague at bedside h/o glaucoma and R knee osteoarthritis c/o 2 weeks history of difficulty ambulating, prox RLE weakness, numbness, and pain. Occ requiring a cane. Severe R knee for OA. Dragging her R leg. Weakness, numbness, and pain worsened last 2 days. No LBP at all. Denies recent trauma to the legs or back, recent falls. Denies L lower extremity weakness, numbness, tingling, bowel or bladder incontinence, frequency, hesitancy, fever, chills. Non-smoker. PE; AF, VSS General- unremarable, chronic venous changes B LE, Mild L knee tenderness; extremities warm though distal LE pulses difficult to fully assess CN- intact; Motor- 5/5 except R triceps (has R arm iv site) and R TA/EHL 4-4+; Sensation- decreased PP/LT/vibration R boothe/foot; DTR- hyporeflexic Head CT- no acute fx, bleed, or hypodensity LS spine CT- multilevel DDD and spondylosis; degenerative facet hypertrophy, no fx MRI LS spine- multilevel DDD, Schmorls' nodes, with disc bulges,but no significant protrusion or extrusion; mild B L2-3 lateral recess stenosis, mild prox B foramenal narrowing, mild L4-5 B foramenal narrowing; mild anteriolisthesis L3-4, retrolisthesis L4-5 and retrolisthesis L5-S1; no acute fx Acute onset R LE symptoms, though greatly out of portion to the mild chronic benign pathology of lumbar spine CT/MRI Baseline neurology input, outpatient EMG/NCS to r/o radiculopathy vs neuropathy Neurontin 100 mg tid Arterial doppler R LE to r/o PAD prior to discharge
--- NOTE | 2019-11-21 09:08 | CONSULT ---
Consult - text type - Consultation Consultation Note: Neurology CHIEF COMPLAINT: R lower extremity weakness PCP: Dr. Dunne HISTORY OF PRESENT ILLNESS: Vania Granger is a 79 year old female with a past medical history of glaucoma and R knee osteoarthritis presented with a 2 weeks history of difficulty ambulating, RLE weakness, numbness, and pain. The patient is usually ambulatory and does not require assistive devices most of the time but occasionally shares her twin sister's cane for ambulation. She drives to many places due to having severe pain in her R knee from osteoarthritis where she noted there was "bone on bone". She is followed by Dr. Dejesus for her orthopedic requirements. She endorsed that over the last 2 weeks she has had increasing weakness and numbness of her R lower extremity where she stated she has had a foot drop and had difficulty operating the pedals in her car. She endorsed dragging her R leg and needing to pick it up with her hands in order to move it. She stated that it is difficult for her to get up her stairs so she must crawl up them. Over the 2 days prior to day of admission, she noted that the weakness, numbness, and pain have gotten to the point where she wanted to be evaluated for them at the emergency room. She denied recent trauma to the legs or spine, recent falls , new medications, sick contacts, recent illnesses, recent travel. Endorsed chronic weakness of her R upper extremity with mild numbness. She denied L lower extremity weakness, numbness, tingling, bowel or bladder incontinence, frequency, hesitancy, dysuria, hematuria. Denied cp, sob, abd pain, n/v/c/d, fever, chills, dizziness, lightheadedness, headaches. MRI of Lumbar Spine reviewed and demonstrated Diffuse degenerative disease throughout the thoracic and lumbar spine.No compression fractures.At L1-L2 there is mild spinal stenosis with bilateral neural outlet encroachment. At L2-L3 there is moderate to severe spinal stenosis. Bilateral neural outlet stenosis. At L3-L4 there is severe spinal stenosis. Bilateral neural outlet stenosis. At L4-L5 there is moderate spinal stenosis. Bilateral neural outlet stenosis which is severe on the left. At L5-S1 there is no spinal stenosis. Left-sided neural outlet encroachment. Right-sided neural outlet stenosis. Posterior displacement of the descending right S1 nerve root without compression against the posterior elements. CT of Head also performed and showed no evidence of acute intracranial pathology. 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 REVIEW OF SYSTEMS CONSTITUTIONAL: Absent: fever, chills, diaphoresis, generalized weakness, malaise, loss of appetite, HEENT: Absent: rhinorrhea, nasal congestion, throat pain, throat swelling, difficulty swallowing, visual changes CARDIOVASCULAR: Absent: chest pain, syncope, palpitations, irregular heart rate, lightheadedness , RESPIRATORY: Absent: cough, shortness of breath, dyspnea with exertion, orthopnea, wheezing, GASTROINTESTINAL: Absent: abdominal pain, abdominal distension, nausea, vomiting, diarrhea, constipation, GENITOURINARY: Absent: dysuria, frequency, urgency, hesitancy, hematuria, flank pain, genital pain MUSCULOSKELETAL: back pain, neck pain Absent: myalgia, arthralgia, joint swelling SKIN: Absent: rash, itching, pallor HEMATOLOGIC/IMMUNOLOGIC: Absent: easy bleeding, easy bruising, lymphadenopathy, frequent infections ENDOCRINE: Absent: unexplained weight gain, unexplained weight loss, heat intolerance, cold intolerance NEUROLOGIC: weakness of the RLE, numbness of the R lower extremity, unsteady gait Absent: headache, dizziness, seizure, mental status changes, bladder or bowel incontinence PSYCHIATRIC: Absent: anxiety, depression, suicidal or homicidal ideation, hallucinations. Allergies dexamethasone [From Decadron] Allergy (Verified 11/20/19 23:35) erythromycin base Allergy (Verified 03/02/19 03:23) Penicillins Allergy (Verified 03/02/19 03:23) HOME MEDICATIONS: Home Medications Medication Instructions Recorded Naproxen Sodium [Aleve] 220 mg PO BID 11/20/19 Netarsudil Mesylate [Rhopressa] 1 drop OU HS 11/20/19 Brimonidine Tartrate [Alphagan 1 drop OU BID 11/21/19 0.2% -] Active Medications Brimonidine Tartrate (Alphagan 0.2% -) 1 drop OU BID [facility] Gabapentin (Neurontin -) 100 mg PO TID DEONDRE Dextrose (D5w -) 1,000 mls @ 42 mls/hr IV ASDIR DEONDRE Last Admin: 11/21/19 05:33 Dose: 42 mls/hr Lidocaine (Lidoderm Patch -) 1 patch TP DAILY PRN PRN Reason: BACK PAIN Miscellaneous (Lidoderm Patch Removal) 1 each MC DAILY@2200 [facility] Naproxen (Naprosyn -) 250 mg PO BID [facility] Non-Formulary Medication (Netarsudil Mesylate [Rhopressa]) 1 drop OU HS DEONDRE PHYSICAL EXAMINATION Vital Signs Period Temp Pulse Resp BP Sys/Torres Pulse Ox Last 24 Hr 97.6 F-98.0 F 60-69 16-18 121-150/63-80 95-99 GENERAL: Awake, alert, and fully oriented, in no acute distress. HEAD: Normal with no signs of trauma. EYES: Pupils equal, round and reactive to light, extraocular movements intact, sclera anicteric, conjunctiva clear. EARS, NOSE, THROAT: Oropharynx clear without exudates. Moist mucous membranes. NECK: Normal range of motion, supple without lymphadenopathy, JVD. LUNGS: Breath sounds equal, clear to auscultation bilaterally. No wheezes, and no crackles. No accessory muscle use. HEART: Regular rate and rhythm, with occasional extra beats, normal S1 and S2 without murmur, rub. ABDOMEN: Soft, nontender, not distended, normoactive bowel sounds, no guarding, no rebound, no masses. MUSCULOSKELETAL: Decreased range of motion of bilateral knees secondary to pain. Tender to palpation on R>L knee. UPPER EXTREMITIES: 2+ pulses, warm, well-perfused. No cyanosis. No clubbing. No peripheral edema. LOWER EXTREMITIES: 2+ pulses, warm, well-perfused. No calf tenderness. No peripheral edema. NEUROLOGICAL: Cranial nerves II-XII intact. 4/5 on R upper extremity with sensory deficit in C5 distribution. 5/5 on LUE. 3/5 muscle strength on the proximal RLE including hip flexion/extension and knee flexion/extension. 5/5 R plantar/dorsiflexion and all of LLE. Sensation diminished throughout on RLE to gross touch, pinprick, and vibratory sense. Sensation intact to gross touch and pinprick throughout except as noted above. 1+ Reflex on R patellar. 2+ on R Achilles and L patellar and Achilles. HTS and FTN intact. Gait not assesed. PSYCHIATRIC: Cooperative. Good eye contact. Appropriate mood and affect. SKIN: Warm, dry, normal turgor, no rashes or lesions noted, normal capillary refill. CBCD WBC 5.0 K/mm3 (4.0-10.0) 11/21/19 05:35 RBC 3.84 M/mm3 (3.60-5.2) 11/21/19 05:35 Hgb 13.2 GM/dL (10.7-15.3) 11/21/19 05:35 Hct 38.3 % (32.4-45.2) 11/21/19 05:35 MCV 99.5 fl (80-96) H 11/21/19 05:35 MCHC 34.4 g/dl (32.0-36.0) 11/21/19 05:35 RDW 14.5 % (11.6-15.6) 11/21/19 05:35 Plt Count 236 K/MM3 (134-434) 11/21/19 05:35 MPV 7.3 fl (7.5-11.1) L 11/21/19 05:35 CMP Sodium 140 mmol/L (136-145) 11/21/19 05:35 Potassium 4.2 mmol/L (3.5-5.1) 11/21/19 05:35 Chloride 108 mmol/L (98-107) H 11/21/19 05:35 Carbon Dioxide 26 mmol/L (21-32) 11/21/19 05:35 Anion Gap 6 MMOL/L (8-16) L 11/21/19 05:35 BUN 13.4 mg/dL (7-18) 11/21/19 05:35 Creatinine 0.7 mg/dL (0.55-1.3) 11/21/19 05:35 Random Glucose 123 mg/dL (74-106) H 11/21/19 05:35 Calcium 9.8 mg/dL (8.5-10.1) 11/21/19 05:35 Total Bilirubin 0.6 mg/dL (0.2-1) 11/21/19 05:35 AST 23 U/L (15-37) 11/21/19 05:35 ALT 22 U/L (13-61) 11/21/19 05:35 Alkaline Phosphatase 102 U/L (45-117) 11/21/19 05:35 Total Protein 7.8 g/dl (6.4-8.2) 11/21/19 05:35 Albumin 3.5 g/dl (3.4-5.0) 11/21/19 05:35 ASSESSMENT/PLAN: Vania Granger is a 79 year old female with a past medical history of glaucoma and R knee osteoarthritis presented with a 2 weeks history of difficulty ambulating, RLE weakness, numbness, and pain. The patient is usually ambulatory and does not require assistive devices most of the time but occasionally shares her twin sister's cane for ambulation. She drives to many places due to having severe pain in her R knee from osteoarthritis where she noted there was "bone on bone". She is followed by Dr. Dejesus for her orthopedic requirements. She endorsed that over the last 2 weeks she has had increasing weakness and numbness of her R lower extremity where she stated she has had a foot drop and had difficulty operating the pedals in her car. She endorsed dragging her R leg and needing to pick it up with her hands in order to move it. She stated that it is difficult for her to get up her stairs so she must crawl up them. Over the 2 days prior to day of admission, she noted that the weakness, numbness, and pain have gotten to the point where she wanted to be evaluated for them at the emergency room. She denied recent trauma to the legs or spine, MRI of Lumbar Spine reviewed and demonstrated Diffuse degenerative disease throughout the thoracic and lumbar spine.No compression fractures.At L1-L2 there is mild spinal stenosis with bilateral neural outlet encroachment. At L2-L3 there is moderate to severe spinal stenosis. Bilateral neural outlet stenosis. At L3-L4 there is severe spinal stenosis. Bilateral neural outlet stenosis. At L4-L5 there is moderate spinal stenosis. Bilateral neural outlet stenosis which is severe on the left. At L5-S1 there is no spinal stenosis. Left-sided neural outlet encroachment. Right-sided neural outlet stenosis. Posterior displacement of the descending right S1 nerve root without compression against the posterior elements.CT of Head also performed and showed no evidence of acute intracranial pathology and no CVA. Dr. Alex, neurosurgery also consulted and reviewed his note and did not believe surgical intervention was needed at this time and advise gabapentin I will increase the dose to 300 mg twice a day is 100 mg is suboptimal and not likely to provide any relief. Discussed with patient the physical therapy may be of benefit and she was in agreement. Short-term rehabilitation may also be of benefit depending on her functional status. Fall precautions. Patient did not tolerate decadron, would advise against further steroids.
[2019-11-21] MEDS ORDERED: PATIENT'S OWN MEDICATION (NON-FORMULARY) (Naproxen Sodium [Aleve] 220 MG) PO SCH (10:00)
[2019-11-21] MEDS ORDERED: BRIMONIDINE TARTRATE 0.2% OPHTHALMIC 5 ML BOTTLE OU SCH (10:00)
[2019-11-21] MEDS ORDERED: NAPROXEN 250 MG TABLET PO SCH (10:00)
--- NOTE | 2019-11-21 11:01 | CONS ---
DATE OF CONSULTATION: 11/21/2019 CHIEF COMPLAINT: Right lower extremity pain, numbness, and weakness. HISTORY OF PRESENT ILLNESS: Patient is a 79-year-old left handed female with a history of severe right knee pain secondary to osteoarthritis of right knee and glaucoma who complains of [id number] of progressive difficulty with ambulation. She experiences pain on her right lateral thigh and right lateral boothe area. She also experiences weakness in terms of operating the foot pedal of her car. She denies bowel or bladder incontinence and has no left-sided lower extremity symptoms whatsoever. This is the 1st occurrence, and she has not experienced these symptoms in the past. She has no bowel or bladder dysfunction. Specifically, she has no incontinence. There are no fevers, chills, or any recent infections. She has not undergone treatment for her back in the past at all. She did undergo some therapy previously for her right knee under the care of Dr. Dejesus. PAST MEDICAL HISTORY: Significant for osteoarthritis of her right knee, glaucoma. CURRENT MEDICATIONS: Naproxen, Alphagan eye drops, and Rhopressa. ALLERGIES: There are no drug allergies. SURGICAL HISTORY: Significant for hysterectomy. SOCIAL HISTORY: She does not smoke or drink. She does not use recreational drugs. She was a former schoolteacher. REVIEW OF SYSTEMS: Otherwise negative for major constitutional, head, neck, cardiovascular, pulmonary, gastrointestinal, genitourinary, endocrinological, neurological, or psychological problems except for the above. PHYSICAL EXAMINATION: Vital Signs: She is afebrile. Vital signs are stable. Temperature is 98, O2 saturation is 95% on room air. HEENT: Shows her to be normocephalic, atraumatic, anicteric. Neck: Supple with no carotid bruits. Coronary: Demonstrates regular rhythm. Lungs: Clear bilaterally. Abdomen: Benign. Extremities: Shows some chronic venous changes of the distal bilateral lower extremity. There are no obvious signs of DVT. Neurologic: She is awake, alert, and oriented x4. Speech is normal. Higher cortical function is also normal. Cranial nerve examination is intact 2-12. Motor examination shows 5/5 strength except right triceps and right extensor hallucis longus and tibialis anterior, which are 4/5 to 4+/5 at least. There is no drift. Sensory examination shows diminished sensation to pinprick and light touch and vibratory sensation to right lateral boothe and right dorsum of right foot. Deep tendon reflexes are hyporeflexive throughout. Examination of her lower back shows no tenderness. She has negative straight leg raise to 50 degrees bilaterally. Gait is not tested for safety reasons. Cerebellar examination demonstrates intact [id number] examination. LABORATORY EXAMINATION: Shows white blood cell count 5, hemoglobin 13.2, and platelet count 236,000. INR is 1.09 and PTT is 30. Serum sodium is 140, potassium 4.2, BUN 13, creatinine 0.7. Calcium 9.8, magnesium 2.1. CT scan of the head demonstrated no acute fracture or acute bleed. There is no significant hypodensity to indicate an ischemic stroke. Lumbar spine CT scan demonstrated multilevel degenerative disk disease with degenerative disk space narrowing and associated osteophytes. There is facet hypertrophy. There is spondylolisthesis noted at L3-4, L4-5, and L5-S1. MRI of the lumbar spine demonstrated multilevel degenerative disk disease from L1-2 to L5-S1. There is no canal or foraminal stenosis at L1-2 and L5-S1. There is facet hypertrophy at multiple levels. There is mild foraminal narrowing at L3-4 and L4-5 and marginal foraminal narrowing at L2-3. There is no significant central canal stenosis at any level. There is no asymmetry. Mild disk bulge is noted at multiple levels. There is no significant nerve root compression. IMPRESSION: 1. Multilevel lumbar degenerative disk disease with associated degenerative spondylolisthesis at L3-4, L4-5, and L5-S1. 2. Marked significant right lower extremity symptoms not concordant with lumbar MRI findings. 3. Glaucoma. 4. Osteoarthritis. RECOMMENDATIONS: Patient presents with acute onset right lower extremity symptoms, which sound like L4 and L5 radiculopathy in terms of weakness, numbness, and pain pattern. However, there is no significant compression of the right L4 and L5 nerve roots on MRI study. Her MRI findings are generally fairly symmetric, and there is no significant central canal stenosis, only mild lateral recess and foraminal narrowing, which is symmetric and bilateral. I cannot adequately attribute her symptoms to her lumbar spine at this point. Baseline neurology consultation is recommended. Perhaps an EMG or nerve conduction study should be done on an outpatient basis to better assess the nerve root function or peripheral neuropathy of lower extremity. I will also like an arterial Doppler study done to rule out peripheral arterial disease because of the recent acute onset of her symptoms rather than gradual onset, which would be expected for degenerative spinal disease. Her clinical picture is likely complicated by her severe right knee osteoarthritis, which has been ongoing for quite some time. I took the liberty of putting her gabapentin 100 mg p.o. t.i.d. to treat her current symptomatology. The above was discussed with the patient and her professional colleague at the bedside in the emergency room. All questions were answered. TIFFANY SMILEY M.D. [id number]
[2019-11-21 11:42] VITALS: PULSE 82; TEMP 98.4; BMI 25.4
--- NOTE | 2019-11-21 13:24 | EKG ---
Test Reason : Blood Pressure : / mmHG Vent. Rate : 061 BPM Atrial Rate : 061 BPM P-R Int : 142 ms QRS Dur : 084 ms QT Int : 392 ms P-R-T Axes : 048 041 -14 degrees QTc Int : 394 ms SINUS RHYTHM WITH PREMATURE ATRIAL COMPLEXES NONSPECIFIC ST ABNORMALITY ABNORMAL ECG Confirmed by ILEANA TURNER MD ([id number]) on 11/21/2019 1:23:56 PM Referred By: Confirmed By:ILEANA TURNER MD
[2019-11-21] MEDS ORDERED: GABAPENTIN 100 MG CAPSULE PO SCH (14:00)
[2019-11-21] MEDS ORDERED: GABAPENTIN 300 MG CAPSULE PO SCH (14:00)
--- NOTE | 2019-11-21 16:26 | DS ---
Physical Exam: SUBJECTIVE: Patient seen and examined today in ED. Pt denies having any recent trauma to the legs or back. Denies LLE weakness, numbness, tingling, bowel or bladder incontinence, frequency, hesitancy, fever, chills. Non-smoker. other than the RLE weakness, however pt could lift leg and hold it for over 5 seconds but states it felt heavy. OBJECTIVE: Vital Signs Period Temp Pulse Resp BP Sys/Torres Pulse Ox Last 24 Hr 98.0 F-98.4 F 60-82 18-18 121-150/63-87 95-98 PHYSICAL EXAM GENERAL: The patient is awake, alert, and fully oriented, in no acute distress. NECK: supple. LUNGS: Breath sounds equal, clear to auscultation bilaterally, no wheezes, no crackles, no accessory muscle use. HEART: Regular rate and rhythm, S1, S2 without murmur, rub or gallop. ABDOMEN: Soft, nontender, nondistended, normoactive bowel sounds, no guarding, no rebound, no hepatosplenomegaly, no masses. EXTREMITIES: 2+ pulses, warm, well-perfused, no edema. NEUROLOGICAL: Cranial nerves II through XII grossly intact. RLE 3/5 ROM, LLE 5/5 , sensation intact b/l PSYCH: Normal mood, normal affect. SKIN: Warm, dry, no rashes or lesions noted. LABS Laboratory Results - last 24 hr 11/20/19 11/20/19 11/20/19 18:00 18:00 18:00 WBC 6.0 RBC 3.92 Hgb 13.4 Hct 39.3 MCV 100.2 H MCH 34.3 H MCHC 34.2 RDW 15.0 Plt Count 247 MPV 8.1 D Absolute Neuts (auto) 3.7 Neutrophils % 62.5 Lymphocytes % 23.2 D Monocytes % 9.1 Eosinophils % 4.4 D Basophils % 0.8 Nucleated RBC % 0 PT with INR 12.10 INR 1.03 PTT (Actin FS) 28.2 Sodium Cancelled Potassium Cancelled Chloride Cancelled Carbon Dioxide Cancelled Anion Gap Cancelled BUN Cancelled Creatinine Cancelled Est GFR (CKD-EPI)AfAm Cancelled Est GFR (CKD-EPI)NonAf Cancelled Random Glucose Cancelled Serum Osmolality Calcium Cancelled Phosphorus Magnesium Total Bilirubin Cancelled AST Cancelled ALT Cancelled Alkaline Phosphatase Cancelled Total Protein Cancelled Albumin Cancelled Blood Type Antibody Screen 11/20/19 11/21/19 11/21/19 18:00 01:02 05:35 WBC 5.0 RBC 3.84 Hgb 13.2 Hct 38.3 MCV 99.5 H MCH 34.3 H MCHC 34.4 RDW 14.5 Plt Count 236 MPV 7.3 L Absolute Neuts (auto) 4.1 Neutrophils % 80.8 D Lymphocytes % 16.5 D Monocytes % 1.8 L D Eosinophils % 0.2 D Basophils % 0.7 Nucleated RBC % 0 PT with INR INR PTT (Actin FS) Sodium 149 H Potassium 4.2 Chloride 117 H Carbon Dioxide 26 Anion Gap 6 L BUN 14.2 Creatinine 0.7 Est GFR (CKD-EPI)AfAm 95.51 Est GFR (CKD-EPI)NonAf 82.41 Random Glucose 100 Serum Osmolality Calcium 9.4 Phosphorus Magnesium Total Bilirubin 0.6 AST 21 ALT 21 Alkaline Phosphatase 92 Total Protein 7.4 Albumin 3.5 Blood Type A POSITIVE Antibody Screen Negative 11/21/19 11/21/19 11/21/19 05:35 05:35 05:35 WBC RBC Hgb Hct MCV MCH MCHC RDW Plt Count MPV Absolute Neuts (auto) Neutrophils % Lymphocytes % Monocytes % Eosinophils % Basophils % Nucleated RBC % PT with INR 12.90 INR 1.09 PTT (Actin FS) 30.0 Sodium 140 Potassium 4.2 Chloride 108 H Carbon Dioxide 26 Anion Gap 6 L BUN 13.4 Creatinine 0.7 Est GFR (CKD-EPI)AfAm 95.51 Est GFR (CKD-EPI)NonAf 82.41 Random Glucose 123 H Serum Osmolality 301 Calcium 9.8 Phosphorus 3.3 Magnesium 2.1 Total Bilirubin 0.6 AST 23 ALT 22 Alkaline Phosphatase 102 Total Protein 7.8 Albumin 3.5 Blood Type Antibody Screen HOSPITAL COURSE: Date of Admission:11/20/19 Images: LS spine CT- multilevel DDD and spondylosis; degenerative facet hypertrophy, no fx MRI LS spine- multilevel DDD, Schmorls' nodes, with disc bulges,but no significant protrusion or extrusion; mild B L2-3 lateral recess stenosis, mild prox B foramenal narrowing, mild L4-5 B foramenal narrowing; mild anteriolisthesis L3-4, retrolisthesis L4-5 and retrolisthesis L5-S1; no acute fx Pt was admitted for RLE weakness and pt found to have spinal stenosis on MRI of L2-L3 among other areas. Dr. Alex was consulted and did not think this patient requires surgery. Pt was seen by neuro as well (Dr. Brandon) who thought pt would benefit from 300 BID neurontin for the pain and follow up for Nerve conduction studies. Pt stable enough for d/c with close follow up with neuro, neurosurgery, and PCP. Date of Discharge: 11/21/19 Discharge Summary Problems reviewed: Yes Reason For Visit: WEAKNESS OF LOWER EXTREMITY, SPINAL STENOSIS Current Active Problems Leg weakness (Chronic) Spinal stenosis (Chronic) Condition: Fair - Instructions Diet, Activity, Other Instructions: You were admitted for evaluation of right leg weakness. An MRI (imaging study) done of your back showed slight narrowing in your spinal column. We had a neurosurgeon come evaluate you while you were here who did not believe you need surgery at this time. He would like you to follow up with him 1 week after discharge. An arterial duplex (ultrasound) of your right leg to check for any narrowing was done and was found to be normal. We also had a neurologist (brain doctor) see you who believes you would benefit from: Neurontin (Gabapentin) 300mg twice daily. You are stable enough for discharge. You should continue your other home medications as prescribed. You should return to the ER if you have any worsening of your current symptoms or: numbness, weakness, tingling, bowel complaints, chest pain. Referrals: Nathaniel Alex MD [Staff Physician] - Claudio Brandon MD [Staff Physician] - Chelsea Dunne MD [Primary Care Provider] - 1 Week - Home Medications Comprehensive Discharge Medication List: Ambulatory Orders Naproxen Sodium [Aleve] 220 mg PO BID 11/20/19 Netarsudil Mesylate [Rhopressa] 1 drop OU HS 11/20/19 Brimonidine Tartrate [Alphagan 0.2% -] 1 drop OU BID 11/21/19 Gabapentin [Neurontin] 300 mg PO BID #60 capsule 11/21/19 ATTENDING PHYSICIAN STATEMENT I saw and evaluated the patient. I reviewed the resident's note and discussed the case with the resident. I agree with the resident's findings and plan as documented. SUBJECTIVE: OBJECTIVE: ASSESSMENT AND PLAN:
[2019-11-21 17:29] VITALS: BP 117/78
--- NOTE | 2019-11-21 17:30 | PN ---
Teaching Attending Note Name of Resident: Hemanth Sommers ATTENDING PHYSICIAN STATEMENT I saw and evaluated the patient. I reviewed the resident's note and discussed the case with the resident. I agree with the resident's findings and plan as documented. SUBJECTIVE: Feeling better. Back to baseline mobility. No pain on ambulation. No weakness more than at baseline. OBJECTIVE: Afebrile, Hemodynamically Stable Last Vital Signs Temp Pulse Resp BP Pulse Ox 98.4 F 82 18 136/87 98 11/21/19 10:00 11/21/19 10:00 11/21/19 10:00 11/21/19 10:00 11/21/19 10:00 HEENT - Atraumatic, Normocephalic. Heart - S1, S2, RRR Lungs - clear to auscultation Abdomen - soft, non-tender. Bowel Sound normal. Extremities - no edema, no calf tenderness. Decreased ROM about R knee. Neuro - AAO x 3. Mild decrease in power RLE due to pain Laboratory Results - last 24 hr 11/20/19 11/20/19 11/20/19 18:00 18:00 18:00 WBC 6.0 RBC 3.92 Hgb 13.4 Hct 39.3 MCV 100.2 H MCH 34.3 H MCHC 34.2 RDW 15.0 Plt Count 247 MPV 8.1 D Absolute Neuts (auto) 3.7 Neutrophils % 62.5 Lymphocytes % 23.2 D Monocytes % 9.1 Eosinophils % 4.4 D Basophils % 0.8 Nucleated RBC % 0 PT with INR 12.10 INR 1.03 PTT (Actin FS) 28.2 Sodium Cancelled Potassium Cancelled Chloride Cancelled Carbon Dioxide Cancelled Anion Gap Cancelled BUN Cancelled Creatinine Cancelled Est GFR (CKD-EPI)AfAm Cancelled Est GFR (CKD-EPI)NonAf Cancelled Random Glucose Cancelled Serum Osmolality Calcium Cancelled Phosphorus Magnesium Total Bilirubin Cancelled AST Cancelled ALT Cancelled Alkaline Phosphatase Cancelled Total Protein Cancelled Albumin Cancelled Blood Type Antibody Screen 11/20/19 11/21/19 11/21/19 18:00 01:02 05:35 WBC 5.0 RBC 3.84 Hgb 13.2 Hct 38.3 MCV 99.5 H MCH 34.3 H MCHC 34.4 RDW 14.5 Plt Count 236 MPV 7.3 L Absolute Neuts (auto) 4.1 Neutrophils % 80.8 D Lymphocytes % 16.5 D Monocytes % 1.8 L D Eosinophils % 0.2 D Basophils % 0.7 Nucleated RBC % 0 PT with INR INR PTT (Actin FS) Sodium 149 H Potassium 4.2 Chloride 117 H Carbon Dioxide 26 Anion Gap 6 L BUN 14.2 Creatinine 0.7 Est GFR (CKD-EPI)AfAm 95.51 Est GFR (CKD-EPI)NonAf 82.41 Random Glucose 100 Serum Osmolality Calcium 9.4 Phosphorus Magnesium Total Bilirubin 0.6 AST 21 ALT 21 Alkaline Phosphatase 92 Total Protein 7.4 Albumin 3.5 Blood Type A POSITIVE Antibody Screen Negative 11/21/19 11/21/19 11/21/19 05:35 05:35 05:35 WBC RBC Hgb Hct MCV MCH MCHC RDW Plt Count MPV Absolute Neuts (auto) Neutrophils % Lymphocytes % Monocytes % Eosinophils % Basophils % Nucleated RBC % PT with INR 12.90 INR 1.09 PTT (Actin FS) 30.0 Sodium 140 Potassium 4.2 Chloride 108 H Carbon Dioxide 26 Anion Gap 6 L BUN 13.4 Creatinine 0.7 Est GFR (CKD-EPI)AfAm 95.51 Est GFR (CKD-EPI)NonAf 82.41 Random Glucose 123 H Serum Osmolality 301 Calcium 9.8 Phosphorus 3.3 Magnesium 2.1 Total Bilirubin 0.6 AST 23 ALT 22 Alkaline Phosphatase 102 Total Protein 7.8 Albumin 3.5 Blood Type Antibody Screen Current Medications Generic Name Dose Route Start Last Admin Trade Name Freq PRN Reason Stop Dose Admin Brimonidine Tartrate 1 drop 11/21/19 10:00 11/21/19 11:30 Alphagan 0.2% - OU 1 drop BID DEONDRE Administration Gabapentin 300 mg 11/21/19 14:00 11/21/19 14:42 Neurontin - PO 300 mg TID DEONDRE Administration Dextrose 1,000 mls @ 42 mls/hr 11/21/19 04:57 11/21/19 05:33 D5w - IV 42 mls/hr ASDIR DEONDRE Administration Lidocaine 1 patch 11/21/19 01:28 Lidoderm Patch - TP DAILY PRN BACK PAIN Miscellaneous 1 each 11/21/19 22:00 Lidoderm Patch Removal MC DAILY@2200 DEONDRE Naproxen 250 mg 11/21/19 10:00 11/21/19 11:00 Naprosyn - PO Not Given BID DEONDRE Non-Formulary Medication 1 drop 11/21/19 22:00 Netarsudil Mesylate [Rhopressa] OU HS [facility] Home Medications Medication Instructions Recorded Naproxen Sodium [Aleve] 220 mg PO BID 11/20/19 Netarsudil Mesylate [Rhopressa] 1 drop OU HS 11/20/19 Brimonidine Tartrate [Alphagan 1 drop OU BID 11/21/19 0.2% -] Gabapentin [Neurontin] 300 mg PO BID #60 capsule 11/21/19 Lidocaine 5% Patch [Lidoderm -] 1 patch TP DAILY PRN patch 11/21/19 Lidocaine Patch Removal [Lidoderm 1 each MC DAILY@2200 each 11/21/19 Patch Removal] Naproxen [Naprosyn -] 250 mg PO BID tablet 11/21/19 ASSESSMENT AND PLAN: 79 year old female with Glaucoma, R Knee OA, DJD Spine, presents with a 2 weeks history of difficulty ambulating, RLE pain and decreased mobility. CT Head negative for acute findings. MRI L Spine - Diffuse degenerative disease throughout the thoracic and lumbar spine. No compression fractures At L1-L2 there is mild spinal stenosis with bilateral neural outlet encroachment. At L2-L3 there is moderate to severe spinal stenosis. Bilateral neural outlet stenosis. At L3-L4 there is severe spinal stenosis. Bilateral neural outlet stenosis. At L4-L5 there is moderate spinal stenosis. Bilateral neural outlet stenosis which is severe on the left. At L5-S1 there is no spinal stenosis. Left-sided neural outlet encroachment. Right-sided neural outlet stenosis. Posterior displacement of the descending right S1 nerve root without compression against the posterior elements. 1. Lumbar Spinal Stenosis with possible Radiculopahty MRI findings as above Evaluated by Neurosurgery - no surgical intervention required, recommend Neurontin and out-patient EMG to exclude radiculopathy. Ambulating well with walking stick. To continue PT as out-patient. 2. OA R Knee - Ortho follow up as out-patient Out-patient PT Medically stable and optimized for discharge with Neurontin, out-patient PT, Neuro, NeuroSx, and Ortho follow-ups.
[2019-11-21] MEDS ORDERED: LIDOCAINE PATCH REMOVAL MC SCH (22:00)
[2019-11-21] MEDS ORDERED: NETARSUDIL MESYLATE OU SCH (22:00)
== END 2019-11-21 17:32 | disposition home or self-care (01) | DRG 552 ==
LOC: JER 14:35 → JERBED 22:40 → JICU 11-21 09:09
PROVIDERS: ADMIT Internal Medicine
DX: M48.061 Spinal stenosis, lumbar region without neurogenic claudication (principal); E87.0 Hyperosmolality and hypernatremia; R29.898 Other symptoms and signs involving the musculoskeletal system; H40.9 Unspecified glaucoma; M17.11 Unilateral primary osteoarthritis, right knee; M51.37 Other intervertebral disc degeneration, lumbosacral region; M47.897 Other spondylosis, lumbosacral region; M51.16 Intervertebral disc disorders with radiculopathy, lumbar region; R26.9 Unspecified abnormalities of gait and mobility
CPT/HCPCS: 36415; 70450-TC; 72131-TC; 72148-TC; 80053; 83735; 83930; 84100; 85025; 85610; 85730; 86850; 86900; 86901; 93005; 93010; 93926-TC; 97116-GP; 97162-GP; 99284-25; J1100

== ENCOUNTER 2020-10-11 11:56 | Emergency (ER) | payer OTHER, MEDICARE | END 2020-10-11 15:04 | disposition home or self-care (01) | LOC: JVIRT 11:56 | DX: Z11.59 Encounter for screening for other viral diseases (principal) | CPT/HCPCS: 87804; C9803; G2012-GT; Q3014-GT; U0003 ==

== ENCOUNTER 2022-09-07 09:03 | Inpatient (IN) | payer OTHER, MEDICARE ==
[2022-09-07 09:25] VITALS: BMI 23.0
[2022-09-07 10:52] LABS: BASO % 1.1 % (0-2.0); EOS % 3.3 % (0-4.5); HEMATOCRIT 37.9 % (32.4-45.2); HEMOGLOBIN 12.8 GM/dL (10.7-15.3); MCH 33.9 pg (25.7-33.7); MCHC 33.8 g/dl (32.0-36.0); MEAN CELL VOLUME 100.2 fl (80-96); MEAN PLT VOLUME 8.7 fl (7.5-11.1); MONO % 11.6 % (3.8-10.2); PLATELET COUNT 212 10^3/uL (134-434); RBC 3.79 M/mm3 (3.60-5.2); RDW 15.7 % (11.6-15.6); WHITE BLOOD COUNT 4.7 K/mm3 (4.0-10.0)
[2022-09-07 11:04] LABS: INR 1.07 (0.83-1.09); PROTHROMBIN TIME (PATIENT) 12.3 SEC (9.7-13.0)
[2022-09-07 11:18] LABS: CHLORIDE 105 mmol/L (98-107); SODIUM 128 mmol/L (136-145)
[2022-09-07 11:21] LABS: CALCIUM 8.8 mg/dL (8.5-10.1); GLUCOSE,RANDOM 74 mg/dL (74-106)
[2022-09-07 11:22] LABS: CO2 29 mmol/L (21-32); MAGNESIUM 2.4 mg/dL (1.8-2.4)
[2022-09-07 11:26] LABS: TOT PROT 8.4 g/dl (6.4-8.2)
[2022-09-07 11:27] LABS: ALK PHOS 87 U/L (45-117)
[2022-09-07 11:38] LABS: ANION GAP -6 MMOL/L (8-16); SGOT/AST 140 U/L (15-37)
[2022-09-07 12:59] LABS: EPI CELLS 21 /uL (0-25.1); HYALINE CASTS 0 /uL (0-3.1); PH,URINE 5.5 (5.0-8.0); URINE APPEARANCE CLEAR; URINE BACTERIA 156 /uL (0-1359); URINE BILIRUBIN NEGATIVE (NEGATIVE); URINE COLOR YELLOW; URINE GLUCOSE (UA) NEGATIVE (NEGATIVE); URINE KETONE NEGATIVE (NEGATIVE); URINE LEUK ESTERASE 1+ (NEGATIVE); URINE NITRITE NEGATIVE (NEGATIVE); URINE PROTEIN NEGATIVE (NEGATIVE); URINE RBC 14 /uL (0-23.9); URINE UROBILINOGEN 0.2 mg/dL (0.2-1.0); URINE WBC 23 /uL (0-25.8)
[2022-09-07 14:05] LABS: BLOOD UREA NITROGEN 20.4 mg/dL (7-18); CALCIUM 9.6 mg/dL (8.5-10.1)
[2022-09-07 14:08] LABS: CREATININE 0.8 mg/dL (0.55-1.3)
[2022-09-07] MEDS ORDERED: LACTATED RINGERS SOLUTION 1000 ML INFUS.BAG IV ONE (14:16)
[2022-09-07] MEDS ORDERED: ACETAMINOPHEN 325 MG TABLET (FP) PO PRN (15:40)
[2022-09-07] MEDS ORDERED: ALBUTEROL SO4 HFA INHALER IH PRN (15:41)
[2022-09-07 17:46] LABS: LIPASE 98 U/L (73-393)
[2022-09-07] MEDS ORDERED: CEFTRIAXONE 1 GM/50 ML BAG ONE (23:57)
[2022-09-07] MEDS ORDERED: ACETAMINOPHEN 325 MG TABLET (FP) ONE (23:57)
[2022-09-08 07:25] LABS: BASO % 0.5 % (0-2.0); EOS % 4.3 % (0-4.5); HEMATOCRIT 38.9 % (32.4-45.2); HEMOGLOBIN 13.4 GM/dL (10.7-15.3); LYMPH % 26.9 % (8-40); MCH 34.8 pg (25.7-33.7); MCHC 34.4 g/dl (32.0-36.0); MEAN CELL VOLUME 101.4 fl (80-96); MEAN PLT VOLUME 7.3 fl (7.5-11.1); NEUT % 59.3 % (42.8-82.8); PLATELET COUNT 196 10^3/uL (134-434); RBC 3.84 M/mm3 (3.60-5.2); RDW 13.8 % (11.6-15.6); WHITE BLOOD COUNT 4.5 K/mm3 (4.0-10.0)
[2022-09-08 07:46] LABS: CALCIUM 9.4 mg/dL (8.5-10.1)
[2022-09-08 07:48] LABS: ALBUMIN 3.4 g/dl (3.4-5.0); BLOOD UREA NITROGEN 20.5 mg/dL (7-18)
[2022-09-08 07:50] LABS: CREATININE 0.8 mg/dL (0.55-1.3); PHOSPHOROUS 3.2 mg/dL (2.5-4.9)
[2022-09-08 07:51] LABS: BILIRUBIN,TOTAL 0.5 mg/dL (0.2-1); TOT PROT 7.1 g/dl (6.4-8.2)
[2022-09-08] MEDS ORDERED: CEFTRIAXONE 1 GM/50 ML BAG ONE (09:25)
[2022-09-08] MEDS ORDERED: ENOXAPARIN NA (PORCINE) 40 MG/0.4 ML DISP.SYRIN SQ ONE (09:25)
[2022-09-08] MEDS: CEFTRIAXONE 1 GM in DEXTROSE 5%-WATER - 50 ML IVPB SCH ×2 (09:26)
[2022-09-08] MEDS ORDERED: ENOXAPARIN NA (PORCINE) 40 MG/0.4 ML DISP.SYRIN SQ SCH (10:00)
[2022-09-08 13:42] VITALS: RESP 18
[2022-09-08 14:35] VITALS: PULSE 75; TEMP 98
[2022-09-08 17:43] VITALS: BP 125/78
== END 2022-09-08 19:05 | disposition home or self-care (01) | DRG 690 ==
LOC: JER 09:03 → JERBED 10:18 → J4W 09-08 14:40
PROVIDERS: ADMIT Internal Medicine
DX: N39.0 Urinary tract infection, site not specified (principal); R10.9 Unspecified abdominal pain; R06.02 Shortness of breath
CPT/HCPCS: 0241U-QW; 36415; 71046-TC-FY; 80048; 80053; 80061; 81003; 83690; 83735; 84100; 84439; 84443; 84484; 85025; 85610; 85730; 87086; 93005; 93010; 93306-TC; 99285-25

== ENCOUNTER 2023-09-17 15:00 | Emergency (ER) | payer OTHER, MEDICARE ==
[2023-09-17 15:12] VITALS: BP 151/83; PULSE 61; RESP 17; TEMP 98; BMI 23.1
[2023-09-17] MEDS ORDERED: ACETAMINOPHEN 1000 MG/100 ML BAG IVPB ONE (16:32)
[2023-09-17] MEDS ORDERED: ACETAMINOPHEN INJECTION 100 ML IVPB ONE (16:47)
[2023-09-17 17:02] LABS: BASO % 0.9 % (0-2.0); EOS % 4.1 % (0-4.5); HEMATOCRIT 37.4 % (32.4-45.2); HEMOGLOBIN 12.7 GM/dL (10.7-15.3); LYMPH % 26.6 % (8-40); MCHC 33.9 g/dl (32.0-36.0); MEAN CELL VOLUME 100.2 fl (80-96); MEAN PLT VOLUME 7.3 fl (7.5-11.1); MONO % 10.8 % (3.8-10.2); NEUT % 57.6 % (42.8-82.8); PLATELET COUNT 255 10^3/uL (134-434); RBC 3.74 M/mm3 (3.60-5.2); RDW 13.9 % (11.6-15.6); WHITE BLOOD COUNT 4.6 K/mm3 (4.0-10.0)
[2023-09-17 17:05] LABS: PH,URINE 5.5 (5.0-8.0); URINE APPEARANCE CLEAR; URINE BILIRUBIN NEGATIVE (NEGATIVE); URINE COLOR YELLOW; URINE GLUCOSE (UA) NEGATIVE (NEGATIVE); URINE KETONE NEGATIVE (NEGATIVE); URINE LEUK ESTERASE NEGATIVE (NEGATIVE); URINE NITRITE NEGATIVE (NEGATIVE); URINE PROTEIN NEGATIVE (NEGATIVE); URINE UROBILINOGEN 0.2 mg/dL (0.2-1.0)
[2023-09-17 17:19] LABS: POTASSIUM 5.4 mmol/L (3.5-5.1)
[2023-09-17 17:23] LABS: CALCIUM 9.3 mg/dL (8.5-10.1)
[2023-09-17 17:24] LABS: ALBUMIN 3.4 g/dl (3.4-5.0); BLOOD UREA NITROGEN 13.8 mg/dL (7-18); MAGNESIUM 2.1 mg/dL (1.8-2.4)
[2023-09-17 17:27] LABS: CREATININE 0.8 mg/dL (0.55-1.3)
[2023-09-17 17:29] LABS: TOT PROT 7.4 g/dl (6.4-8.2)
[2023-09-17 19:14] LABS: POTASSIUM 3.9 mmol/L (3.5-5.1)
[2023-09-17 19:15] LABS: CALCIUM 9.5 mg/dL (8.5-10.1)
[2023-09-17 19:16] LABS: BLOOD UREA NITROGEN 13.3 mg/dL (7-18)
[2023-09-17 19:19] LABS: CREATININE 0.8 mg/dL (0.55-1.3)
== END 2023-09-17 22:19 | disposition home or self-care (01) ==
LOC: JER 15:00
PROC: 3E033NZ Introduction of Analgesics, Hypnotics, Sedatives into Peripheral Vein, Percutaneous Approach (ICD-10-PCS; principal; 2023-09-17)
DX: M79.604 Pain in right leg (principal); R25.2 Cramp and spasm
CPT/HCPCS: 36415; 80048; 80053; 81003; 83735; 85025; 87086; 93005; 93010; 93970-TC; 99285-25

== ENCOUNTER 2024-01-15 04:37 | Day surgery (SDC) | payer OTHER, MEDICARE ==
[2024-01-11 12:21] VITALS: BMI 22.3
[2024-01-15 09:50] VITALS: RESP 18
[2024-01-15 10:39] VITALS: TEMP 97.1
[2024-01-15 11:28] VITALS: BP 116/65; PULSE 65
== END 2024-01-15 11:29 | disposition home or self-care (01) ==
LOC: JASU-ENDO 04:37
PROVIDERS: ATTEND Internal Medicine Gastroenterology
PROC: 0DBL8ZX Excision of Transverse Colon, Via Natural or Artificial Opening Endoscopic, Diagnostic (ICD-10-PCS; principal; 2024-01-15 10:30)
DX: Z12.11 Encounter for screening for malignant neoplasm of colon (principal); D12.3 Benign neoplasm of transverse colon; K57.30 Diverticulosis of large intestine without perforation or abscess without bleeding; Z86.010 Personal history of colon polyps; Z83.719 Family history of colon polyps, unspecified
CPT/HCPCS: 88305-TC